=== PATIENT | male | born 1995 | race Caucasian/White ===

== ENCOUNTER 2016-04-27 04:38 | Emergency (ER) | payer MEDICAID ==
[~2016-04-27] VITALS: Ht 167.6 cm; Wt 77.5 kg
[~2016-04-27 04:38] MED LIST: ACET500C5 PO; ALBU8.5H3; CYCL-319 PO
[2016-04-27 04:45] VITALS: Ht 167.6 cm; Wt 77.5 kg
[2016-04-27] MEDS ORDERED: morphine 2 MG INJ IV STA (06:25)
[2016-04-27] MEDS ORDERED: SOD CHLORIDE 0.9% 1,000 ML IV STA (06:25)
[2016-04-27] MEDS ORDERED: ONDANSETRON 4 MG INJ IV STA (06:25)
[2016-04-27] MEDS ORDERED: DIPHENHYDRAMINE 50 MG INJ IV ONE (06:30)
--- NOTE | 2016-04-27 07:00 | RADRPT ---
PROCEDURE: CT ABDOMEN/PELVIS WITHOUT CONTRAST CLINICAL INDICATION: 20-year-old male with abdominal pain. TECHNIQUE: The study was performed utilizing a [employer] VCT 64-slice CT scanner. Direct axia l sections were obtained through the abdomen and pelvis without the use of intravenous contrast mate rial. Sagittal and coronal reformations were obtained. Automated exposure control and iterative jono nstruction techniques were utilized for this examination. The images [facility] CTD/vol = 11.4 mGy; Total Exam DLP = 699.1 mGy-cm. COMPARISON: CT abdomen/pelvis November 26, 2011. FINDINGS: There is scarring identified within the left lateral basal region measuring approximately 1.3 x 1.9 x 1.2 cm with dystrophic calcification where the patient had a previously identified area of consoli dation. There is no evidence for significant pleural effusion. The liver has a normal size and con tour without focal areas of abnormal density. No intrahepatic nor extrahepatic biliary ductal dilata tion is seen. The gallbladder is partially collapsed without evidence for calcified stones, signific ant wall thickening or pericholecystic fluid. The pancreas is without areas of abnormal attenuation. The spleen is identified and has a normal size without abnormal density. The adrenal glands are un remarkable. The kidneys are without abnormal density. No hydroureteronephrosis nor nephroureterolith iasis is evident. The urinary bladder contains urine. The stomach is distended with fluid. There is no evidence for bowel obstruction. The appendix is not visualized consistent with prior appendectomy. There is no significant free fluid. The aortoiliac vessels are without aneurysmal dil atation. The osseous structures are intact. IMPRESSION: 1. Scarring with dystrophic calcification within the left lateral basal segment of the lung with th e patient had prior consolidation identified on a CT scan from November 2011. 2. Distended fluid filled stomach. 3. Status post appendectomy. 4. No CT evidence for obstructive uropathy or renal calculi. .Etsevan Don MD, Date Time Electronically viewed and signed by .Estevan Dno MD, on 04/27/2016 07:00 .M/
[2016-04-27 07:03] LABS: BASOPHILS % 0.1 % (0.0-2.0); EOSINOPHILS # 0.1 10^3/ul (0.0-0.5); HEMATOCRIT 48.7 % (42.0-52.0); HEMOGLOBIN 16.9 g/dl (14.0-18.0); MEAN CORPUSCULAR HEMOGLOBIN 32.5 pg (29.0-33.0); MEAN CORPUSCULAR HGB CONC 34.7 g/dl (32.0-37.0); MEAN CORPUSCULAR VOLUME 93.8 fl (72.0-104.0); MEAN PLATELET VOLUME 8.7 fl (7.4-10.4); MONOCYTE # 1.1 10^3/ul (0.3-0.9); MONOCYTES % 9.7 % (0.0-13.0); NEUTROPHIL # 9.3 10^3/ul (1.6-7.5); NEUTROPHILS % 80.2 % (30.0-74.0); PLATELET COUNT 234 10^3/UL (140-440); RED BLOOD COUNT 5.19 10^6/ul (4.70-6.10); UNCORRECTED WBC 11.6 10^3/ul (4.8-10.8); WHITE BLOOD COUNT 11.6 10^3/ul (4.8-10.8)
[2016-04-27 07:03] LABS: ADD UMIC NO; URINE BILIRUBIN (Dip) 2+ (NEGATIVE); URINE BLOOD (Dip) NEGATIVE (NEGATIVE); URINE COLOR YELLOW (YELLOW); URINE GLUCOSE (Dip) NEGATIVE (NEGATIVE); URINE KETONES (Dip) 15 (NEGATIVE); URINE LEUKOCYTE ESTERASE (Dip) NEGATIVE (NEGATIVE); URINE NITRITE (Dip) NEGATIVE (NEGATIVE); URINE TOTAL PROTEIN (Dip) NEGATIVE (NEGATIVE); URINE UROBILINOGEN (Dip) 4.0 E.U./dL (0.1-1.0)
--- NOTE | 2016-04-27 07:04 | RADRPT ---
PROCEDURE: CHEST - 1 VIEW CLINICAL INDICATION: 20-year-old male with chest/abdominal pain. TECHNIQUE: A single frontal AP view of the chest was performed portably. The images were reviewed on a PACS workstation. COMPARISON: Chest x-ray February 25, 2011; CT abdomen/pelvis April 27, 2016. FINDINGS: The cardiomediastinal silhouette has a normal appearance. There is a shallow inspiration. There is no evidence for an infiltrate. The pulmonary vascularity is within normal limits. There is no evide nce for pneumothorax or pneumomediastinum. The osseous structures are intact. IMPRESSION: No evidence for active cardiopulmonary disease. .Estevan Don MD, MD Date Time Electronically viewed and signed by .Estevan Don MD, on 04/27/2016 07:04 .Amarilis
[2016-04-27 07:11] LABS: ICTOTEST POSITIVE (NEGATIVE)
[2016-04-27 07:12] LABS: CONDITION 1
[2016-04-27 07:14] LABS: ALBUMIN 4.5 g/dl (3.3-4.9)
[2016-04-27 07:17] LABS: ALBUMIN/GLOBULIN RATIO 1.4; BILIRUBIN,DIRECT 0.1 mg/dl (0.00-0.20); BILIRUBIN,INDIRECT 0.3 mg/dl (0-1.1); BILIRUBIN,TOTAL 0.4 mg/dl (0.2-1.3); CALCIUM 9.6 mg/dl (8.4-10.2); CREATININE 0.76 mg/dl (0.61-1.24); TOTAL PROTEIN 7.7 g/dl (6.1-8.1)
--- NOTE | 2016-04-27 08:00 | RADRPT ---
PROCEDURE: ULTRASOUND LIMITED ABDOMEN CLINICAL INDICATION: 20-year-old male with abdominal pain. TECHNIQUE: Multiple sonographic of the right upper quadrant of the abdomen were obtained. The imag es were reviewed on a PACS workstation. COMPARISON: None. FINDINGS: The pancreas is partially visualized and is otherwise without abnormal echogenicity. The liver displays normal echogenicity. The liver measures 15.4 cm in length. No evidence of intrah epatic biliary ductal dilatation is seen. The portal and hepatic veins are unremarkable. The gallbladder is contracted without evidence for shadowing stones. The gallbladder wall thickness is within normal limits measuring 2.7 mm. No pericholecystic fluid is seen. The common bile duct me asures 1.5 mm and is not dilated. The right kidney displays normal echogenicity. The right kidney measures 11.8 x 5.5 x 6.0 cm. No joão iectasis or hydronephrosis is seen. No free fluid is seen. IMPRESSION: Unremarkable right upper quadrant abdominal ultrasound. .Estevan Don MD, MD Date Time Electronically viewed and signed by .Estevan Don MD, MD on 04/27/2016 08:00 .M/
[2016-04-27] MEDS ORDERED: NAPR-260 PO (08:28)
[2016-04-27] MEDS ORDERED: RANI150T9 PO (08:33)
[2016-04-27] MEDS ORDERED: PRED20TA PO (08:33)
[2016-04-27] MEDS ORDERED: OMEP20CA16 PO (08:33)
[2016-04-27 08:41] VITALS: BP 122/77; PULSE 83; RESP 20; TEMP 98.3
--- NOTE | 2016-04-27 10:01 | ERD ---
ER Documentation Chief Complaint Date/Time DATE: 04/27/16 TIME: 09:54 Chief Complaint flank, abdominal and chest pain x 3 days, body rash HPI 20-year-old male comes in with epigastric abdominal pain across his left upper quadrant and left flank for the past 3 days. He reports as achy pain associated with nausea, not getting better with Tylenol at home. He denies any fevers or vomiting or diarrhea or urine symptoms. He also woke up with a rash today that is pruritic on his arms and chest. Patient states that he has had "liver test problems" for a long time now for at least a year, he states that he does not drink. ROS All systems reviewed and are negative except as per history of present illness. Medications Home Meds Active Scripts Omeprazole* (Omeprazole*) 20 Mg Capsule.dr, 20 MG PO DAILY, #30 Prov:TANIA VILLASENOR PA-C 04/27/16 Ranitidine Hcl* (Zantac*) 150 Mg Tablet, 150 MG PO BID Y for EPIGASTRIC PAIN, # 30 TAB Prov:TANIA VILLASENOR PA-C 04/27/16 Prednisone* (Prednisone*) 20 Mg Tab, 40 MG PO DAILY for 4 Days, TAB Prov:TANIA VILLASENOR PA-C 04/27/16 Cyclobenzaprine Hcl* (Cyclobenzaprine Hcl*) 10 Mg Tablet, 10 MG PO TID, #15 TAB Prov:BROOKLYN DURÁN NP 09/19/15 Acetaminophen* (Tylophen*) 500 Mg Capsule, 1 CAP PO Q6H Y for PAIN AND OR ELEVATED TEMP, #20 CAP Prov:BROOKLYN DURÁN NP 09/19/15 Reported Medications Albuterol Sulfate* (Proair HFA*) 8.5 Gm Hfa.aer.ad 11/21/12 Allergies Allergies: Coded Allergies: No Known Drug Allergies (Verified Allergy, Mild, 11/28/12) PMhx/Soc History of Surgery: No Anesthesia Reaction: No Hx Neurological Disorder: No Hx Respiratory Disorders: No Hx Cardiac Disorders: No Hx Psychiatric Problems: No Hx Miscellaneous Medical Probl: No Hx Alcohol Use: No Hx Substance Use: No Hx Tobacco Use: No Smoking Status: Never smoker Physical Exam Vitals Vital Signs Date Time Temp Pulse Resp B/P Pulse Ox O2 Delivery O2 Flow Rate FiO2 04/27/16 08:41 98.3 83 20 122/77 98 Room Air 04/27/16 04:45 98.0 95 17 132/85 99 Physical Exam Const: [] Head: Atraumatic Eyes: Normal Conjunctiva ENT: Normal External Ears, Nose and Mouth. Neck: Full range of motion..~ No meningismus. Resp: Clear to auscultation bilaterally Cardio: Regular rate and rhythm, no murmurs Abd: Soft, non tender, non distended. Normal bowel sounds Skin: No petechiae or rashes Back: No midline or flank tenderness Ext: No cyanosis, or edema Neur: Awake and alert Psych: Normal Mood and Affect Result Diagram: 04/27/16 0635 04/27/16 0635 Results 24 hrs Laboratory Tests Test 04/27/16 06:25 04/27/16 06:35 Urine Bilirubin 2+ Urine Clarity SLIGHTLY CLOUDY Urine Color YELLOW Urine Glucose NEGATIVE% Urine Hemoglobin NEGATIVE Urine Ictotest POSITIVE Urine Ketones 15 Urine Leukocyte Esterase NEGATIVE Urine Nitrite NEGATIVE Urine Specific [place] 1.015 Urine Total Protein NEGATIVE Urine Urobilinogen 4.0 E.U./dL Urine pH 8.0 Alanine Aminotransferase (ALT/SGPT) 239IU/L Albumin 4.5g/dl Albumin/Globulin Ratio 1.40 Alkaline Phosphatase 264IU/L Anion Gap 18 Aspartate Amino Transf (AST/SGOT) 148IU/L Basophils # 0.010^3/ul Basophils % 0.1% Blood Urea Nitrogen 7mg/dl Calcium Level 9.6mg/dl Carbon Dioxide Level 27mmol/L Chloride Level 102mmol/L Creatinine 0.76mg/dl Direct Bilirubin 0.10mg/dl Eosinophils # 0.110^3/ul Eosinophils % 1.0% Globulin 3.20g/dl Glucose Level 109mg/dl Hematocrit 48.7% Hemoglobin 16.9g/dl Indirect Bilirubin 0.3mg/dl Lipase 50U/L Lymphocytes # 1.010^3/ul Lymphocytes % 9.0% Mean Corpuscular Hemoglobin 32.5pg Mean Corpuscular Hemoglobin Concent 34.7g/dl Mean Corpuscular Volume 93.8fl Mean Platelet Volume 8.7fl Monocytes # 1.110^3/ul Monocytes % 9.7% Neutrophils # 9.310^3/ul Neutrophils % 80.2% Nucleated Red Blood Cells # 0.010^3/ul Nucleated Red Blood Cells % 0.0/100WBC Platelet Count 00656^3/UL Potassium Level 4.0mmol/L Red Blood Count 5.1910^6/ul Red Cell Distribution Width 13.0% Sodium Level 143mmol/L Total Bilirubin 0.4mg/dl Total Protein 7.7g/dl White Blood Count 11.610^3/ul Current Medications Medications (Trade) Dose Ordered Sig/Marla Route PRN Reason Start Time Stop Time Status Last Admin Dose Admin Sodium Chloride (NS) 1,000 ml @ 1,000 mls/hr Q1H STAT IV 04/27/16 06:25 04/27/16 08:42 DC 04/27/16 06:56 Morphine Sulfate (morphine) 2 mg ONCE STAT IV 04/27/16 06:25 04/27/16 08:42 DC 04/27/16 06:57 Ondansetron HCl (Zofran Inj) 4 mg ONCE STAT IV 04/27/16 06:25 04/27/16 08:42 DC 04/27/16 06:57 Diphenhydramine HCl (Benadryl) 25 mg ONCE ONCE IV 04/27/16 06:30 04/27/16 08:42 DC 04/27/16 06:57 PROCEDURE: CHEST - 1 VIEW CLINICAL INDICATION: 20-year-old male with chest/abdominal pain. TECHNIQUE: A single frontal AP view of the chest was performed portably. The images were reviewed on a PACS workstation. COMPARISON: Chest x-ray February 25, 2011; CT abdomen/pelvis April 27, 2016. FINDINGS: The cardiomediastinal silhouette has a normal appearance. There is a shallow inspiration. There is no evidence for an infiltrate. The pulmonary vascularity is within normal limits. There is no evidence for pneumothorax or pneumomediastinum. The osseous structures are intact. IMPRESSION: No evidence for active cardiopulmonary disease. .Estevan Don MD, Date Time Electronically viewed and signed by .Estevan Don MD, MD on 04/27/2016 07:04 .M/ CC: TANIA VILLASENOR PA-C PROCEDURE: ULTRASOUND LIMITED ABDOMEN CLINICAL INDICATION: 20-year-old male with abdominal pain. TECHNIQUE: Multiple sonographic of the right upper quadrant of the abdomen were obtained. The images were reviewed on a PACS workstation. COMPARISON: None. FINDINGS: The pancreas is partially visualized and is otherwise without abnormal echogenicity. The liver displays normal echogenicity. The liver measures 15.4 cm in length. No evidence of intrahepatic biliary ductal dilatation is seen. The portal and hepatic veins are unremarkable. The gallbladder is contracted without evidence for shadowing stones. The gallbladder wall thickness is within normal limits measuring 2.7 mm. No pericholecystic fluid is seen. The common bile duct measures 1.5 mm and is not dilated. The right kidney displays normal echogenicity. The right kidney measures 11.8 x 5.5 x 6.0 cm. No caliectasis or hydronephrosis is seen. No free fluid is seen. IMPRESSION: Unremarkable right upper quadrant abdominal ultrasound. .Estevan Don MD, MD Date Time Electronically viewed and signed by .Estevan Don MD, MD on 04/27/2016 08:00 PROCEDURE: CT ABDOMEN/PELVIS WITHOUT CONTRAST CLINICAL INDICATION: 20-year-old male with abdominal pain. TECHNIQUE: The study was performed utilizing a [employer] VCT 64-slice CT scanner. Direct axial sections were obtained through the abdomen and pelvis without the use of intravenous contrast material. Sagittal and coronal reformations were obtained. Automated exposure control and iterative reconstruction techniques were utilized for this examination. The images were reviewed on a PACS workstation. CTD/vol = 11.4 mGy; Total Exam DLP = 699.1 mGy -cm. COMPARISON: CT abdomen/pelvis November 26, 2011. FINDINGS: There is scarring identified within the left lateral basal region measuring approximately 1.3 x 1.9 x 1.2 cm with dystrophic calcification where the patient had a previously identified area of consolidation. There is no evidence for significant pleural effusion. The liver has a normal size and contour without focal areas of abnormal density. No intrahepatic nor extrahepatic biliary ductal dilatation is seen. The gallbladder is partially collapsed without evidence for calcified stones, significant wall thickening or pericholecystic fluid. The pancreas is without areas of abnormal attenuation. The spleen is identified and has a normal size without abnormal density. The adrenal glands are unremarkable. The kidneys are without abnormal density. No hydroureteronephrosis nor nephroureterolithiasis is evident. The urinary bladder contains urine. The stomach is distended with fluid. There is no evidence for bowel obstruction. The appendix is not visualized consistent with prior appendectomy. There is no significant free fluid. The aortoiliac vessels are without aneurysmal dilatation. The osseous structures are intact. IMPRESSION: 1. Scarring with dystrophic calcification within the left lateral basal segment of the lung with the patient had prior consolidation identified on a CT scan from November 2011. 2. Distended fluid filled stomach. 3. Status post appendectomy. 4. No CT evidence for obstructive uropathy or renal calculi. .Estevan Don MD, MD Date Time Electronically viewed and signed by .Estevan Don MD, on 04/27/2016 07:00 Procedures/[facility] ED course: Patient had labs and urine obtained, and morphine 4 mg Zofran 4 mg IV. He was also given Benadryl 25 mg IV. MDM: 20-year-old male comes in with a upper abdominal pain on the left side and flank, differentials include gastritis, GERD, splenic injury, kidney stones, pneumonia, pancreatitis, acute hepatobiliary process. Patient has evidence of transaminitis tinnitus, without evidence of underlying gallstone. When speaking with the patient he states that he has had these liver issues for many months now, despite him not drinking or consuming alcohol. His abdominal pain will be treated on a trial of ranitidine and omeprazole, he also comes in with a rash that appears to be an allergic reaction. His elevated AST and ALT appears to be a chronic issue, he states that he has never been to see a bush regenerator. I believe this patient's workup is appropriate to be managed on an outpatient basis at this time. He has known about his liver enzymes for some time now, a believe that the patient can further benefit from gastroenterology intervention outpatient. Other differentials to consider include hepatitis however his AST and ALT are just mildly elevated, others include an autoimmune process given the patient's history of rash. He will be given also prednisone advised to take Benadryl as needed at home. Departure Diagnosis: Primary Impression: Abdominal pain Additional Impression: Rash Condition: Good Patient Instructions: Abdominal Pain Additional Instructions: GASTROENTEROLOGY SPECIALIST: YOU HAVE A MEDICAL CONDITION WHICH REQUIRES YOU TO SEE A SPECIALIST WITHIN THE NEXT 1 WEEK. PLEASE FOLLOW UP WITH YOUR PRIMARY PHYSICIAN FOR REFFERAL.IF YOU DO NOT HAVE A PRIMARY CARE PHYSICIAN AND/ OR YOU CAN NOT AFFORD TO SEE A PHYSICIAN THE FOLLOWING RESOURCES HAVE BEEN SUPPLIED TO YOU. IT IS YOUR RESPONSIBILITY TO BE SEEN BY THE SPECIALIST TANIA VILLASENOR PA-C Apr 27, 2016 10:01
== END 2016-04-27 08:42 | disposition home or self-care (01) ==
LOC: FTE 04:38
DX: R10.13 Epigastric pain (principal); R10.32 Left lower quadrant pain; R21 Rash and other nonspecific skin eruption; R11.0 Nausea
CPT/HCPCS: 36415; 71010; 74176; 76705; 80053; 81003; 83690; 85025; 93005; 96374; 96375; J1200; J2270; J2405; J7030; Z7502

== ENCOUNTER 2018-01-03 06:18 | Emergency (ER) | END 2018-01-03 08:51 | disposition home or self-care (01) ==